=== PATIENT | female | born 1950 | race Caucasian/White ===

== ENCOUNTER 2016-12-06 10:42 | Day surgery (SDC) | payer MEDICARE, OTHER ==
[~2016-12-06] VITALS: Ht 165.1 cm; Wt 86.4 kg
[~2016-12-06 10:42] MED LIST: BYSTOLIC10 MG PO; COZAAR100 MG PO; PERCOCET 10/3251 TA1 PO; SINEMET 25-1001 EACH PO; VALIUM5 MG PO
[2016-12-06 12:12] LABS: BASOPHILS 0.4 % (0-2); HEMATOCRIT 41.1 % (36.0-48.0); HEMOGLOBIN 13.6 g/dL (12-16); IMMATURE GRANULOCYTES 0.2 % (0-5); LYMPHOCYTES 35.2 % (15-50); MCH 31.6 pg (26.0-34.0); MCHC 33.1 g/dL (31.0-37.0); MCV 95.6 fL (80.0-100.0); MEAN PLATELET VOLUME 10.1 fL (7.4-10.4); MONOCYTES 9.5 % (2-11); NEUTROPHILS 50.7 % (40-80); PLATELET COUNT 252 10x3/uL (130-400); RDW 13.7 % (11.5-14.5); WBC 5.7 10x3/uL (4.8-10.8)
[2016-12-06] MEDS ORDERED: BACLOFEN10 MG PO (12:14)
[2016-12-06] MEDS ORDERED: K-TAB10 MEQ PO (12:24)
[2016-12-06] MEDS ORDERED: LASIX40 MG PO (12:24)
[2016-12-06] MEDS ORDERED: KLONOPIN1 MG PO (12:25)
[2016-12-06 12:27] LABS: CALC OSMOLALITY 289 mosm/kg (275-300); CARBON DIOXIDE 28.8 mmol/L (21.0-32.0); CHLORIDE - SERUM 107 mmol/L (98-107); CREATININE - SERUM 0.8 mg/dL (0.6-1.3); GLUCOSE 103 mg/dL (74-106); POTASSIUM - SERUM 4.4 mmol/L (3.5-5.1); SODIUM 145 mmol/L (136-145); UREA NITROGEN 15 mg/dL (7-18); eGFR NON AFRICAN AMERICAN 76 mL/min (90-120)
[2016-12-06 12:35] VITALS: BP 118/55; Ht 165.1 cm; Wt 86.4 kg
--- NOTE | 2016-12-06 13:34 | NUR ---
CLIP APPLIED TO CECCAL POLYP SNARED.
--- NOTE | 2016-12-06 15:11 | NUR ---
1500 IV DC WITH CATHER TIP INTACT W/O REDNESS
--- NOTE | 2016-12-10 15:50 | OP ---
PATIENT NAME: SHANE GREENWOOD MEDICAL RECORD: [id number] :50 LOCATION:[facility] ADMISSION DATE: SURGEON: KAVEH CLEARY DO DATE OF OPERATION: 12/06/2016 PROCEDURE: Colonoscopy with polypectomy. INDICATIONS FOR PROCEDURE: Family history of colon cancer in mother and history of colon polyps, as well as hematochezia. SCOPE: Olympus video pediatric colonoscope. MEDICATIONS: Propofol 550 mg IV and Versed 2 mg IV per anesthesia. WITHDRAWAL TIME: 36 minutes. ESTIMATED BLOOD LOSS: Minimal. COMPLICATIONS: None. FINDINGS: Informed consent was given. The patient was made comfortable with the above medication. After reaching an adequate level of sedation by slow IV push, the patient was placed on her left side. A digital rectal examination was performed and was normal. The endoscope was then advanced under direct visualization through the rectum to the cecum with visualization of the appendiceal orifice and ileocecal valve. The scope was slowly withdrawn and mucosa was carefully examined. The prep quality was good. In the cecum, there were 3 separate polyps. Two were benign appearing and sessile, measured approximately 2-4 mm in diameter. They were both removed using hot forceps and completely retrieved. The third polyp was a larger flat lesion measuring approximately 8-9 mm in diameter. It was lifted with saline and removed using a snare cautery. It was removed in 1 piece and completely retrieved. In the ascending colon, there was another flat lesion which measured approximately 1 cm in size. It was injected with saline and lifted before removal in 1 piece with snare cautery and completely retrieved. The polyp in the cecum that was larger and flat left a small defect with some bleeding that was not stopping spontaneously. The defect and the bleeding was stopped and close with a single endoclip successfully. There were no other polyps on this examination. There was mild diverticulosis in the sigmoid colon. Retroflexion was performed in the rectum with visualization of small nonbleeding internal hemorrhoids. The endoscope was then withdrawn from the patient. The patient tolerated the procedure well and there were no complications. IMPRESSION: 1. Multiple polyps as described above removed using hot forceps and saline injection with snare cautery in EMR fashion. 2. Mild diverticulosis of the sigmoid colon. 3. Small nonbleeding internal hemorrhoids. PLAN AND RECOMMENDATIONS: 1. Discharge home when recovery parameters are met. 2. High fiber diet. 3. Continue current medications. 4. Repeat colonoscopy in 1 year regarding the number and types of polyps removed. 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
== END 2016-12-06 15:15 | disposition home or self-care (01) ==
LOC: D.OPS 10:42
PROVIDERS: Anesthesiology
DX: D12.0 Benign neoplasm of cecum (principal); D12.2 Benign neoplasm of ascending colon; K92.1 Melena; Z80.0 Family history of malignant neoplasm of digestive organs; K57.30 Diverticulosis of large intestine without perforation or abscess without bleeding; I10 Essential (primary) hypertension; K21.9 Gastro-esophageal reflux disease without esophagitis; G47.30 Sleep apnea, unspecified; Z01.812 Encounter for preprocedural laboratory examination; K64.8 Other hemorrhoids